=== PATIENT | female | born 1995 | race Hispanic/Latino ===

== ENCOUNTER 2022-04-12 12:37 | Emergency (ER) | payer SELFPAY ==
--- NOTE | ~2022-04-12 | US_ITS ---
EXAMINATION: US pelvic complete w TV DATE: 04/12/2022 15:08 INDICATION: . Vaginal bleeding. TECHNIQUE: Real-time transabdominal and transvaginal pelvic ultrasound was performed. COMPARISON: None. FINDINGS: TRANSABDOMINAL ULTRASOUND: The uterus measures 11.1 x 5.2 x 7.4 cm. TRANSVAGINAL ULTRASOUND: There is an intrauterine gestational sac. No yolk sac is identified. An echo that may be the pole measures 4 mm, which correlates with an estimated gestational age of 6 we eks and 0 day(s) (+/-) 4 day(s). heart motion is not identified by M-mode Doppler, which may be normal at this size. The right ovary is not visualized. The left ovary measures 2.6 x 1.0 x 2.2 cm. There is no free fluid in the pelvis. IMPRESSION: 1. Single intrauterine gestation with estimated date of delivery of 12/06/2022. Reviewed, dictated and finalized at location [facility]
[2022-04-12 12:59] VITALS: BP 109/61; PULSE 65; RESP 14; TEMP 37.2; O2SAT 100
[2022-04-12 14:48] LABS: Basophils Percent Auto 0.7 % (0.2-1.2); Eosinophils Absolute Auto 0.2 K/mm3 (0-0.3); Eosinophils Percent Auto 3.7 % (0-4.4); Hematocrit 37.9 % (37.0-47.0); Hemoglobin 12.3 g/dL (12.0-15.0); Immature Granulocyte Absolute 0.01 K/mm3 (0.00-0.031); Immature Granulocyte Percent A 0.2 % (0-0.5); Lymphocytes Absolute Auto 1.79 K/mm3 (0.9-3.2); Lymphocytes Percent Auto 31.1 % (18.3-44.2); Mean Corpuscular HGB Conc 32.5 g/dl (32-36); Mean Corpuscular Hemoglobin 25.8 pg (26-34); Mean Corpuscular Volume 79.6 fl (80-100); Mean Platelet Volume 10.4 fl (7.4-10.4); Monocytes Absolute Auto 0.6 K/mm3 (0.1-0.6); Monocytes Percent Auto 10.4 % (2.6-8.5); Neutrophils Absolute Auto 3.1 K/mm3 (1.3-6.7); Neutrophils Percent Auto 53.9 % (45.5-73.1); Platelet Count Result 234 k/mm3 (150-375); Red Blood Count 4.76 M/mm3 (4.2-5.4); Red Cell Distribution Width 16.7 % (11.5-14.5); White Blood Count 5.8 K/mm3 (4.5-10.0)
[2022-04-12 15:38] LABS: Appearance Urine Clear (Clear); Bilirubin Urine Negative (Negative); Blood Urine 1+ (Negative); Color Urine Yellow (Yellow); Glucose Urine UA Negative (Negative); Ketones Urine Negative (Negative); Leukocyte Esterase Ur Negative LEU/UL (Negative); Nitrate Urine Negative (Negative); Protein Urine Negative (Negative); Urobilinogen Urine 0.2 mg/dL (<2.0)
--- NOTE | 2022-04-12 15:43 | WPDEDEXPGENP ---
HPI - General Ped General Chief complaint: Vaginal Bleeding Stated complaint: 9 weeks , spotting Time Seen by Provider: 04/12/22 14:13 History of Present Illness HPI narrative: 26-year-old female who is 7 weeks presents to the emergency room for evaluation of suspected vaginal bleeding. Patient states she noticed small clots on the toilet paper when she wipes following the bathroom. Reported some mild abdominal cramping as well. Patient states that she has been constipated for several days. Continue OB care at this time. Pediatric Review of Systems Review of Systems: CONSTITUTIONAL: Denies fever, chills, or sweats. EYES: Denies visual changes, redness, or discharge. ENT: Denies rhinorrhea, congestion, sore throat, or otalgia. CARDIOVASCULAR: Denies chest pain, palpitations, or edema. RESPIRATORY: Denies cough or dyspnea. GASTROINTESTINAL: Denies abdominal pain, nausea, vomiting, or diarrhea. GENITOURINARY: Reports hematuria versus vaginal bleeding SKIN: Denies rash or itching. MUSCULOSKELETAL: Denies back pain, joint pain, or myalgia. NEUROLOGIC: Denies headache, numbness, dizziness, or weakness. PSYCHIATRIC: Denies anxiety or depression. Pediatric Exam Narrative: Physical exam: GENERAL: Well-appearing, well-nourished, no physical limitations, and in no acute distress. HEAD: Normocephalic, atraumatic. EYES: Conjunctivae normal, PERRLA and EOMI. CHEST: Clear to auscultation. No respiratory distress. No wheezes rales or rhonchi. HEART: Regular rate and rhythm. No murmur heard. Normal peripheral pulses. ABDOMEN: Soft, nontender, nondistended, normal active bowel sounds. BACK: No CVA tenderness; No cervical/thoracic/lumbar tenderness, step-offs, bony abnormality EXTREMITIES: Normal range of motion. No edema. No clubbing or cyanosis SKIN: Warm, dry, no rash. No noted wounds NEURO: No focal deficits. Alert and oriented x3. MAEW. CN's II-XI intact bilaterally, normal gait PSYCH: Cooperative. Normal mood and affect. Course Vital Signs Vital signs: Vital Signs Temperature 37.2 C 04/12/22 12:59 Pulse Rate 65 04/12/22 12:59 Respiratory Rate 14 04/12/22 12:59 Blood Pressure 109/61 04/12/22 12:59 Pulse Oximetry 100 04/12/22 12:59 Oxygen Delivery Room Air 04/12/22 12:59 Temperature 37.2 C 04/12/22 12:59 Pulse Rate 65 04/12/22 12:59 Respiratory Rate 14 04/12/22 12:59 Blood Pressure 109/61 04/12/22 12:59 Pulse Oximetry 100 04/12/22 12:59 Oxygen Delivery Room Air 04/12/22 12:59 Medical Decision Making Vital Signs Vital Signs: Vital Signs Temperature 37.2 C 04/12/22 12:59 Pulse Rate 65 04/12/22 12:59 Respiratory Rate 14 04/12/22 12:59 Blood Pressure 109/61 04/12/22 12:59 Pulse Oximetry 100 04/12/22 12:59 Oxygen Delivery Room Air 04/12/22 12:59 Temperature 37.2 C 04/12/22 12:59 Pulse Rate 65 04/12/22 12:59 Respiratory Rate 14 04/12/22 12:59 Blood Pressure 109/61 04/12/22 12:59 Pulse Oximetry 100 04/12/22 12:59 Oxygen Delivery Room Air 04/12/22 12:59 Lab Data Result diagrams: 04/12/22 14:30 Labs: Lab Results 04/12/22 04/12/22 04/12/22 Range/Units 14:30 14:30 14:30 WBC 5.8 (4.5-10.0) K/mm3 RBC 4.76 (4.2-5.4) M/mm3 Hgb 12.3 (12.0-15.0) g/dL Hct 37.9 (37.0-47.0) % MCV 79.6 L (80-100) fl MCH 25.8 L (26-34) pg MCHC 32.5 (32-36) g/dl RDW 16.7 H (11.5-14.5) % Plt Count 234 (150-375) k/mm3 MPV 10.4 (7.4-10.4) fl Immature Gran % (Auto) 0.2 (0-0.5) % Neut % (Auto) 53.9 (45.5-73.1) % Lymph % (Auto) 31.1 (18.3-44.2) % [place]val % (Auto) 10.4 H (2.6-8.5) % Eos % (Auto) 3.7 (0-4.4) % Baso % (Auto) 0.7 (0.2-1.2) % Lymph # (Auto) 1.79 (0.9-3.2) K/mm3 [place]val # (Auto) 0.6 (0.1-0.6) K/mm3 Eos # (Auto) 0.2 (0-0.3) K/mm3 Baso # (Auto) 0.0 (0.0-0.1) K/mm3 Abs Immat Gran (auto) 0.01 (0.00-0.031) K/mm3 Absolute Ne
[2022-04-12 15:45] LABS: Squamous Epithelial Cell Urine Occasional /hpf (Few); WBC Urine 0-3 /hpf
[2022-04-12 15:46] LABS: Add Urine Microscopic? YES
== END 2022-04-12 15:53 | disposition home or self-care (01) ==
LOC: ANHED 16:22
PROVIDERS: Emergency Medicine; Emergency Provider Nurse Practitioner Family
DX: R31.9 Hematuria, unspecified (principal); O26.891 Other specified pregnancy related conditions, first trimester; Z3A.01 Less than 8 weeks gestation of pregnancy
CPT/HCPCS: 36415; 76830; 76856; 81001; 84702; 85025; 85461; 86850; 86900; 86901; 99284

== ENCOUNTER 2022-04-13 11:35 | Emergency (ER) | payer SELFPAY ==
[2022-04-13 11:51] VITALS: BP 95/49; PULSE 61; RESP 16; TEMP 37.2; O2SAT 100
[2022-04-13 13:31] LABS: Hematocrit 37.6 % (37.0-47.0); Hemoglobin 12.3 g/dL (12.0-15.0); Mean Corpuscular HGB Conc 32.7 g/dl (32-36); Mean Corpuscular Hemoglobin 25.9 pg (26-34); Mean Corpuscular Volume 79.2 fl (80-100); Mean Platelet Volume 9.9 fl (7.4-10.4); Platelet Count Result 228 k/mm3 (150-375); Red Blood Count 4.75 M/mm3 (4.2-5.4); Red Cell Distribution Width 16.6 % (11.5-14.5); White Blood Count 11.2 K/mm3 (4.5-10.0)
--- NOTE | 2022-04-13 14:05 | PC.NURSE ---
EDP at bedside to complete pelvic exam.
[2022-04-13 14:20] LABS: Band Neutrophils Percent 4 % (0-6); Lymphocytes Absolute Manual 2.35 K/mm3 (1.1-4.5); Monocytes Absolute Manual 0.44 K/mm3 (0.1-0.90); Monocytes Percent Manual 4 % (3-9); Neutrophils Percent Manual 71 % (46-73); Total Cells Counted 100
[2022-04-13 14:21] LABS: Hypochromasia 1+ (NORMAL); Microcytosis 1+ (NORMAL); Platelet Estimate Adequate (Adequate); Schistocytes None Seen (NORMAL)
[2022-04-13 14:47] VITALS: BP 108/53; BP 96/52; BP 97/53; PULSE 56; PULSE 58
--- NOTE | 2022-04-13 15:07 | ED.FEMALEGU ---
HPI - Female Genitourinary General Chief complaint: Vaginal Bleeding Stated complaint: 9 weeks vb Time Seen by Provider: 04/13/22 13:07 History of Present Illness HPI Narrative: 26-year-old female presents today with complaints of vaginal bleeding. Patient was here yesterday for similar complaints where she had an ultrasound done showing no heart rate with gestational sac measuring approximately 6 weeks. Patient was instructed to follow-up with OB. Patient try to get an appointment with OB but does not have insurance and was refused an appointment. She started bleeding today states she went through 3 pads in the hour prior to coming in here. Patient denies any dizziness, shortness of breath, lightheadedness, or chest pain. Patient does endorse some abdominal cramping at this current time. Related Data Allergies Allergy/AdvReac Type Severity Reaction Status Date / Time No Known Allergies Allergy Verified 04/13/22 15:12 Review of Systems Review of Systems: CONSTITUTIONAL: Denies fever, chills, or sweats. EYES: Denies visual changes, redness, or discharge. ENT: Denies rhinorrhea, congestion, sore throat, or otalgia. CARDIOVASCULAR: Denies chest pain, palpitations, or edema. RESPIRATORY: Denies cough or dyspnea. GASTROINTESTINAL: Denies abdominal pain, nausea, vomiting, or diarrhea. GENITOURINARY: Denies dysuria or hematuria. Vaginal bleeding with clots with abdominal cramping. NEUROLOGIC: Denies headache, numbness, dizziness, or weakness. PSYCHIATRIC: Denies anxiety or depression. Exam Narrative: GENERAL: Well-appearing, well-nourished, and in no acute distress. HEAD: Normocephalic, atraumatic. EYES: PERRLA and EOMI. CHEST: Clear to auscultation. No respiratory distress. No wheezes rales or rhonchi HEART: Regular rate and rhythm. No murmur heard. Normal peripheral pulses. ABDOMEN: Soft, nontender, nondistended, normal active bowel sounds. : Pelvic exam completed with [employer]. Mild/moderate amount of bleeding noted with clots. Unable to visualize cervix at this time. EXTREMITIES: Normal range of motion. No edema. SKIN: Warm, dry, no rash. NEURO: No focal deficits. Alert and oriented x3. PSYCH: Normal mood and affect. Course Course Emergency Course: Discussed findings with patient and family at bedside. Aware of diagnosis of threatened . Aware of need for follow-up with OB for further management. All questions answered. Patient to follow-up with OB on-call if possible. Patient also aware can try to follow-up with [facility]. Vital Signs Vital signs: Vital Signs Temperature 37.2 C 04/13/22 11:51 Pulse Rate 61 04/13/22 11:51 Respiratory Rate 16 04/13/22 11:51 Blood Pressure 95/49 L 04/13/22 11:51 Pulse Oximetry 100 04/13/22 11:51 Temperature 37.2 C 04/13/22 11:51 Pulse Rate 58 L 04/13/22 14:47 Respiratory Rate 16 04/13/22 11:51 Blood Pressure 108/53 L 04/13/22 14:47 Pulse Oximetry 100 04/13/22 11:51 MDM - Female Genitourinary MDM Narrative Medical decision making narrative: 18-year-old female HPI as noted. Differentials include threatened miscarriage, vaginal bleeding, vaginal bleeding during . Patient had ultrasound done yesterday IUP was confirmed. No heart rate was obtained at this time. Patient returned today with increased vaginal bleeding and cramping. hCG down 10,000 points. Suspect miscarriage. Patient to follow-up with OB. Hemoglobin stable. Orthostatics negative. Patient stable to be discharged home. Medical Records Attestation: I reviewed the patient's medical records. Lab Data Attestation: I reviewed the patient's lab results. Result diagrams: 04/13/22 13:21 Labs: Lab Results 04/13/22 04/13/22 Range/Units 13:21 13:21 WBC 11.2 H (4.5-10.0) K/mm3 RBC 4.75 (4.2-5.4) M/mm3 Hgb 12.3 (12.0-15.0) g/dL Hct 37.6 (37.0-47.0) % MCV 79.2 L (80-100) fl MCH 25.9 L (26-34
[2022-04-13] MEDS: ACETAMINOPHEN 500 MG TABLET 1000 MG PO (15:13)
== END 2022-04-13 15:54 | disposition home or self-care (01) ==
PROVIDERS: Emergency Provider Nurse Practitioner Family
DX: O20.0 Threatened abortion (principal); Z3A.01 Less than 8 weeks gestation of pregnancy
CPT/HCPCS: 36415; 84702; 85025; 99283; A9270

== ENCOUNTER 2022-04-19 15:44 | Outpatient (CLI) | payer SELFPAY | END 2022-04-19 15:45 | disposition home or self-care (01) | LOC: ANHLAB 15:45 | PROVIDERS: Visit Provider Student in an Organized Health Care Education/Training Program | DX: O02.1 Missed abortion (principal) | CPT/HCPCS: 36415; 84702 ==